=== PATIENT | female | born 1960 | race Caucasian/White ===

== ENCOUNTER 2019-01-09 23:48 | Emergency (ER) | payer OTHER ==
[~2019-01-09] VITALS: Ht 160 cm; Wt 62.6 kg
[2019-01-09 23:50] VITALS: Ht 160 cm; Wt 62.6 kg
[2019-01-10] MEDS ORDERED: HYDROCODONE/APAP (5/325) TAB PO ONE (01:00)
[2019-01-10] MEDS ORDERED: CEFAZOLIN 1 GM INJ IM ONE (02:30)
[2019-01-10] MEDS ORDERED: CEPH-443 PO (02:38)
[2019-01-10] MEDS ORDERED: IBUP-1542 PO (02:39)
[2019-01-10] MEDS ORDERED: HYDR-4011 PO (02:39)
[2019-01-10] MEDS ORDERED: ONDA4TAB14 PO (02:40)
[2019-01-10] MEDS ORDERED: DIPHTH/TET/ACEL PERTUSS (ADULT) 0.5 ML VIAL IM* ONE (03:00)
--- NOTE | 2019-01-10 03:02 | ERD ---
ER Documentation Chief Complaint Chief Complaint [facility]F [facility] fall&slide from a stairwell, R arm hurts yulia wrist HPI Patient is a 58-year-old female, no past medical history, presents the ER for concerns of right wrist pain after a trip and fall injury [employer]. Patient states she was at the [facility] when she tripped while leaving. Patient states she landed on her left shoulder/elbow however to brace her fall she also landed on her wrist. Patient denied her head. Patient did not lose consciousness. Patient has had no episodes of vomiting. Patient does not recall her last tetanus vaccine. Patient denies any previous fractures or dislocations to the affected extremity. Patient is right-hand dominant. ROS All systems reviewed and are negative except as per history of present illness. Medications Home Meds Active Scripts Ondansetron (Ondansetron Odt) 4 Mg Tab.rapdis, 4 MG PO Q6H PRN for NAUSEA AND/OR VOMITING, #10 TAB Prov:EMERITA MERCHANT PA-C 01/10/19 Ibuprofen* (Motrin*) 600 Mg Tab, 600 MG PO Q6, #30 TAB Prov:EMERITA MERCHANT-C 01/10/19 Hydrocodone/Acetaminophen (Madison 5-325 Tablet) 1 Each Tablet, 1 TAB PO Q6H PRN for PAIN, #7 TAB Prov:EMERITA MERCHANT PA-C 01/10/19 Cephalexin* (Keflex*) 500 Mg Capsule, 500 MG PO TID for 7 Days, CAP Prov:EMERITA MERCHANT-C 01/10/19 Allergies Allergies: Coded Allergies: No Known Allergy (Unverified , 01/09/19) PMhx/Soc Medical and Surgical Hx: pt denies Medical Hx, pt denies Surgical Hx Hx Alcohol Use: No Hx Substance Use: No Hx Tobacco Use: No Smoking Status: Never smoker FmHx Family History: No diabetes Physical Exam Vitals Vital Signs Date Temp Pulse Resp B/P (MAP) Pulse Ox O2 O2 Flow FiO2 Time Delivery Rate 01/09/19 98.1 87 18 117/56 98 23:50 (76) Physical Exam GENERAL: Well-developed, well-nourished female. Appears in no acute distress. Speaking in full sentences HEAD: Normocephalic, atraumatic. EYES: Pupils are equally reactive bilaterally. EOMs grossly intact. No conjunctival erythema. EXTREMITIES: Equal pulses bilaterally. No peripheral clubbing, cyanosis or edema. No unilateral leg swelling. NEUROLOGIC: Alert and oriented. Moving all four extremities without any difficulty. Normal speech. Steady gait. SKIN: Normal color. Warm and dry. No rashes or lesions. RUE: Swelling noted to the right wrist. Superficial abrasion noted to the volar aspect of the wrist. No visualization of tendons and bones. Tender to palpation over the distal radius. Sensation intact to light touch. Neurovascularly intact. (Able to give thumbs up, make an ok sign, cross digits 2 and 3, thumb to pinky opposition. 2+ RP.) No snuffbox tenderness. Results 24 hrs Current Medications Medications Dose Sig/Jefry Start Time Status Last (Trade) Ordered Route PRN Stop Time Admin Dose Reason Admin 1 tab ONCE ONCE 01/10/19 DC Acetaminophen PO 01:00 / 01/10/19 01:01 Hydrocodone Bitart (Madison (5/325)) Cefazolin 1 gm ONCE ONCE 01/10/19 DC Sodium IM 02:30 (Ancef) 01/10/19 02:31 Diphtheria/ 0.5 ml ONCE ONCE 01/10/19 Tetanus/Acell IM* 03:00 Pertussis 01/10/19 03:01 (Adacel) Procedures/MDM ED COURSE: The patient was stable throughout ED course. I kept the patient and/or family informed of laboratory and diagnostic imaging results throughout the ED course. DIAGNOSTIC IMAGING: Read by radiologist. DIAGNOSTIC IMAGING REPORT Patient: CARLOS LANDEROS : 1960 Age: 58 Sex: F MR #: [id number] DOS: 01/10/19 005 Ordering MD: EMERITA MERCHANT PA-C Location: [facility] Room/Bed: PROCEDURE: X-ray right wrist. CLINICAL INDICATION: Right wrist pain status post fall. TECHNIQUE: AP, lateral and oblique views of the right wrist. COMPARISON: None. FINDINGS: Comminuted impacted intra-articular fracture of the distal right radius, with apex ventral angulation. Question fracture at the medial aspect of the distal ulnar metaphysis, involving the metaphysis and styloid process. Differential considerations include sequela of remote trauma in this region, with dystrophic soft tissue calcifications. Juxtaarticular demineralization is seen in the distal forearm, and in the partially visualized hand. The remaining osseous structures are otherwise without evident acute fracture. Cystic changes are seen in the proximal capitate, the distal lateral scaphoid, and the central hamate, compatible with chronic degenerative changes. IMPRESSION: 1. Comminuted impacted intra-articular fracture of the distal right radial metaphysis, with apex ventral angulation. 2. Question fracture at the medial aspect of the distal ulnar metaphysis, involving the metaphysis and the styloid process. 3. Differential considerations include the sequela of remote trauma at the distal ulna, with dystrophic soft tissue calcifications. 4. Otherwise, the remaining osseous structures are without evident acute fracture. 5. Juxtaarticular demineralization is seen in the distal forearm and in the proximal hand, with degenerative changes in the carpus. RPTAT: UU Physician Daksha Date Time Electronically viewed and signed by Physician Daksha on 01/10/2019 02:23 RS/ CC: EMERITA MERCHANT PA-C [id number] PROCEDURES: SPLINT APPLICATION: The patient was verbally consented at bedside prior to splint application. Patient was explained the risks, benefits and alternatives to this procedure. The patient was neurovascularly intact prior to and status post application of the splint. The patient tolerated the procedure well with no complications. Splint type: sling Extremity: right wrist Indication: 1. Comminuted impacted intra-articular fracture of the distal right radial metaphysis, with apex ventral angulation. 2. Question fracture at the medial aspect of the distal ulnar metaphysis, involving the metaphysis and the styloid process. 3. Differential considerations include the sequela of remote trauma at the distal ulna, with dystrophic soft tissue calcifications. 4. Otherwise, the remaining osseous structures are without evident acute fracture. 5. Juxtaarticular demineralization is seen in the distal forearm and in the p roximal hand, with degenerative changes in the carpus. MEDICATIONS GIVEN: Tdap and Ancef MEDICAL DECISION MAKING: This is a 58-year-old female no past medical history presents the ER for concerns of right wrist pain after trip and fall injury prior to arrival. Vital signs were reviewed. Patient was afebrile. On exam, patient swelling throughout her right wrist. Superficial abrasion was noted to the volar aspect of the wrist. No evidence of deep open wound or laceration. No visualized of deep structures. XR showed 1. Comminuted impacted intra-articular fracture of the distal right radial metaphysis, with apex ventral angulation. 2. Question fracture at the medial aspect of the distal ulnar metaphysis, involving the metaphysis and the styloid process. 3. Differential considerations include the sequela of remote trauma at the distal ulna, with dystrophic soft tissue calcifications. 4. Otherwise, the remaining osseous structures are without evident acute fracture. 5. Juxtaarticular demineralization is seen in the distal forearm and in the proximal hand, with degenerative changes in the carpus. Case and imaging studies reviewed with supervising physician Dr. Apodaca who did not feel that patient required reduction here in the ER. He advised me to splint the patient and have her follow up with customer resource specialist. Patient was given Ancef as a precautionary measure given location of abrasion and fracture. Tdap was also given. Patient will be discharged home with Keflex. Patient was placed in a sugar tong splint given a shoulder sling. Patient was remain in splint until seen and cleared by customer resource specialist. Patient advised to follow-up with customer resource specialist tomorrow. Referral information was provided. At this time for the patient presentation is most consistent with right wrist fracture. Low suspicion for elbow fracture, compartment syndrome, open fracture, neurovascular injury. Unable to rule any ligament or tendon injuries at this time. PRESCRIPTIONS: Ibuprofen, Zofran, Keflex, Madison Patient presents to take Madison when driving or operating any machinery. DISCHARGE: At this time, patient is stable for discharge and outpatient management. I have instructed the patient to promptly return to the ER for any new or worsening symptoms including increased pain, swelling, redness, warmth or fever. The patient and/or family expressed understanding of and agreement with this plan. All questions were answered. Home care instructions were provided. Disclaimer: Inadvertent spelling and grammatical errors are likely due to EHR/dictation software use and do not reflect on the overall quality of patient care. Also, please note that the electronic time recorded on this note does not necessarily reflect the actual time of the patient encounter. Departure Diagnosis: Primary Impression: Radius distal fracture Encounter type: initial encounter Fracture type: closed Fracture morphology: unspecified fracture morphology Laterality: left Qualified Codes: S52.502A - Unspecified fracture of the lower end of left radius, initial encounter for closed fracture Additional Impression: Abrasion Condition: Fair Patient Instructions: Radial Head Fracture Referrals: [facility] YOU HAVE RECEIVED A MEDICAL SCREENING EXAM AND THE RESULTS INDICATE THAT YOU DO NOT HAVE A CONDITION THAT REQUIRES URGENT TREATMENT IN THE EMERGENCY DEPARTMENT. FURTHER EVALUATION AND TREATMENT OF YOUR CONDITION CAN WAIT UNTIL YOU ARE SEEN IN YOUR DOCTORS OFFICE WITHIN THE NEXT 1-2 DAYS. IT IS YOUR RESPONSIBILITY TO MAKE AN APPOINTMENT FOR FOLOW-UP CARE. IF YOU HAVE A PRIMARY DOCTOR --you should call your primary doctor and schedule an appointment IF YOU DO NOT HAVE A PRIMARY DOCTOR YOU CAN CALL OUR PHYSICIAN REFERRAL HOTLINE AT IF YOU CAN NOT AFFORD TO SEE A PHYSICIAN YOU CAN CHOSE FROM THE FOLLOWING [facility] [address]. [facility] [address] [facility]. [facility] [address] [facility] [facility] [address] [facility] [facility] [address] [facility]. [facility]. [address] [facility]. [facility] YOU HAVE RECEIVED A MEDICAL SCREENING EXAM AND THE RESULTS INDICATE THAT YOU DO NOT HAVE A CONDITION THAT REQUIRES URGENT TREATMENT IN THE EMERGENCY DEPARTMENT. FURTHER EVALUATION AND TREATMENT OF YOUR CONDITION CAN WAIT UNTIL YOU ARE SEEN IN YOUR DOCTORS OFFICE WITHIN THE NEXT 1-2 DAYS. IT IS YOUR RESPONSIBILITY TO MAKE AN APPOINTMENT FOR FOLOW-UP CARE. IF YOU HAVE A PRIMARY DOCTOR --you should call your primary doctor and schedule and appointment IF YOU DO NOT HAVE A PRIMARY DOCTOR YOU CAN CALL OUR PHYSICIAN REFERRAL HOTLINE AT . IF YOU CAN NOT AFFORD TO SEE A PHYSICIAN YOU CAN CHOSE FROM THE FOLLOWING [facility] INSTITUTIONS: [facility] [address] [place] [address] [facility] [address] [place] [address] [facility] + [facility] [address] [place] [address] [facility] Hours: Mon-Thu 9:00 AM - 5:00 PM Additional Instructions: Follow-up with customer resource specialist TOMORROW. See referral information. Remain in splint at all times. Call your primary care doctor TOMORROW for an appointment during the next 1-2 days.See the doctor sooner or return here if your condition worsens before your appointment time. EMERITA MERCHANT PA-C Jan 10, 2019 03:02
[2019-01-10 03:46] VITALS: BP 94/57; PULSE 80; RESP 16
== END 2019-01-10 03:46 | disposition home or self-care (01) ==
LOC: FTE 23:48
DX: S52.571A Other intraarticular fracture of lower end of right radius, initial encounter for closed fracture (principal); W01.0XXA Fall on same level from slipping, tripping and stumbling without subsequent striking against object, initial encounter; Y92.9 Unspecified place or not applicable; Z23 Encounter for immunization
CPT/HCPCS: 36415; 73110; 90471; 90715; 96372; 99284; J0690; L3260